=== PATIENT | female | born 1995 | race American Indian/Alaskan Native ===

== ENCOUNTER 2021-05-01 17:53 | Emergency (ER) | payer MEDICAID ==
[2021-05-01] MEDS ORDERED: ONDANSETRON 4 MG ODT TAB PO ONE (19:47)
[2021-05-01] MEDS ORDERED: DICYCLOMINE 20 MG TAB PO ONE (19:47)
[2021-05-01] MEDS ORDERED: FAMOTIDINE 20 MG TAB PO ONE (19:47)
[2021-05-01 20:09] LABS: Basophils % (Auto) 0.5 % (0.0-1.8); Eosinophils # (Auto) 0.1 K/mm3 (0.0-0.4); Eosinophils % (Auto) 1.2 % (0.0-4.3); Hematocrit 40.7 % (30.3-42.9); Hemoglobin 13.8 gm/dl (10.1-14.3); Lymphocytes % (Auto) 37.5 % (13.4-35.0); Mean Corpuscular HGB Conc 34 % (30-34); Mean Corpuscular Volume 89 fl (79-97); Monocytes # (Auto) 0.4 K/mm3 (0.0-0.8); Monocytes % (Auto) 7.3 % (0.0-7.3); Platelet Count 239 K/mm3 (140-440); Red Blood Count 4.59 M/mm3 (3.65-5.03); Red Cell Distribution Width 14.3 % (13.2-15.2)
[2021-05-01 20:23] LABS: Alanine Aminotransferase 14 units/L (7-56); Albumin 4.2 g/dL (3.9-5); Blood Urea Nitrogen 7 mg/dL (7-17); Calcium 9.1 mg/dL (8.4-10.2); Hemolysis Index 36
[2021-05-01 20:37] LABS: BUN/Creatinine Ratio 10
[2021-05-01 23:09] LABS: Bilirubin,Urine NEG (Negative); Blood,Urine NEG (Negative); Color,Urine Yellow (Yellow); Mucus,Urine FEW /HPF; Protein,Urine <15 mg/dL mg/dL (Negative); Urobilinogen,Urine < 2.0 mg/dL (<2.0)
--- NOTE | 2021-05-01 23:19 | Emergency Department Report ---
ED Abdominal Pain HPI - General Chief Complaint: Abdominal Pain Stated Complaint: NOT FEELING WELL Source: patient Mode of arrival: Ambulatory Limitations: No Limitations - History of Present Illness Initial Comments: Patient is a A0 25-year-old -[place] female with no past medical history except GERD and for which she does not take any medications presents to the ED with complaint of acute onset persistent intermittent epigastric pain with nausea and vomiting for the last 1 week, worse in the last 2 days. Patient states that she has not been able to eat anything because any smell of food or any consumption of food makes the epigastric pain worse. Patient states that she has been taking [id number] pain medication with no relief. Patient also states that her LMP was April 05, 2021 and that she has had 2+ urine tests at home and wanted to confirm the same during this visit. Patient denies fever, chills, diarrhea, dysuria, urinary frequency and urgency, vaginal bleeding, vaginal discharge, cough, chest pain, shortness of breath, sor e throat, headache, back pain, traumatic injury or hematemesis. MD Complaint: abdominal pain (Epigastric pain), other (Nausea and vomiting) -: Sudden, week(s) (2) Location: epigastric Radiation: none Migration to: no migration Severity: moderate Severity scale (0 -10): 6 Quality: cramping, aching Consistency: intermittent Improves With: nothing Worsens With: eating Associated Symptoms: denies other symptoms, nausea, vomiting, anorexia. denies: diarrhea, fever, chills, constipation, dysuria, hematemesis, hematochezia, melena, hematuria, syncope, other - Related Data LMP Date: 04/05/21 Previous Rx's Medication Instructions Recorded Last Taken Type Dicyclomine [Bentyl] 20 mg PO Q6H PRN #30 tablet 05/01/21 Unknown Rx Famotidine [Pepcid] 20 mg PO BID #60 tablet 05/01/21 Unknown Rx Ondansetron [Zofran Odt] 4 mg PO Q6HR PRN #20 tab.rapdis 05/01/21 Unknown Rx Allergies Allergy/AdvReac Type Severity Reaction Status Date / Time shellfish derived Allergy Unknown Verified 05/01/21 19:57 berries Allergy Unknown Uncoded 05/01/21 18:07 ED Review of Systems ROS: Stated complaint: NOT FEELING WELL Other details as noted in HPI Constitutional: denies: chills, fever Eyes: denies: eye pain, eye discharge, vision change ENT: denies: ear pain, throat pain Respiratory: denies: cough, shortness of breath, wheezing Cardiovascular: denies: chest pain, palpitations Endocrine: no symptoms reported Gastrointestinal: abdominal pain (Epigastric), nausea, vomiting. denies: diarrhea Genitourinary: denies: urgency, dysuria, discharge Musculoskeletal: denies: back pain, joint swelling, arthralgia Skin: denies: rash, lesions Neurological: denies: headache, weakness, paresthesias Psychiatric: denies: anxiety, depression Hematological/Lymphatic: denies: easy bleeding, easy bruising ED Past Medical Hx - Medications Home Medications: Home Medications Medication Instructions Recorded Confirmed Last Taken Type Dicyclomine [Bentyl] 20 mg PO Q6H PRN #30 tablet 05/01/21 Unknown Rx Famotidine [Pepcid] 20 mg PO BID #60 tablet 05/01/21 Unknown Rx Ondansetron [Zofran Odt] 4 mg PO Q6HR PRN #20 tab.rapdis 05/01/21 Unknown Rx ED Physical Exam - General Limitations: No Limitations General appearance: alert, in no apparent distress - Head Head exam: Present: atraumatic, normocephalic, normal inspection - Eye Eye exam: Present: normal appearance, PERRL, EOMI Pupils: Present: normal accommodation - ENT ENT exam: Present: normal exam, normal orophraynx, mucous membranes moist, TM's normal bilaterally, normal external ear exam - Neck Neck exam: Present: normal inspection, full ROM - Respiratory Respiratory exam: Present: normal lung sounds bilaterally. Absent: respiratory distress, wheezes, rales, rhonchi, chest wall tenderness, accessory muscle use, decreased breath sounds, prolonged expiratory - Cardiovascular Cardiovascular Exam: Present: regular rate, normal rhythm, normal heart sounds. Absent: systolic murmur, diastolic murmur, rubs, gallop - GI/Abdominal GI/Abdominal exam: Present: soft, tenderness (Palpable mild epigastric tende rness), normal bowel sounds. Absent: guarding, rebound, hyperactive bowel sounds, hypoactive bowel sounds, organomegaly, mass, pulsatile mass - Extremities Exam Extremities exam: Present: normal inspection, full ROM, normal capillary refill - Back Exam Back exam: Present: normal inspection, full ROM. Absent: tenderness, CVA tenderness (R), CVA tenderness (L), muscle spasm, paraspinal tenderness, vertebral tenderness - Neurological Exam Neurological exam: Present: alert, oriented X3, CN II-XII intact, normal gait, reflexes normal - Psychiatric Psychiatric exam: Present: normal affect, normal mood - Skin Skin exam: Present: warm, dry, intact, normal color. Absent: rash ED Course Vital Signs 05/01/21 18:03 Temperature 98.8 F Pulse Rate 74 Respiratory 16 Rate Blood Pressure 138/83 [Left] O2 Sat by Pulse 98 Oximetry ED Medical Decision Making - Lab Data Result diagrams: 05/01/21 19:50 05/01/21 19:50 - Medical Decision Making This is a A0 25-year-old -[place] female with no past medical history except GERD and for which she does not take any medications presents to the ED with complaint of acute onset persistent intermittent epigastric pain with nausea and vomiting for the last 1 week, worse in the last 2 days. Patient states that she has not been able to eat anything because any smell of food or any consumption of food makes the epigastric pain worse. Patient states that she has been taking [id number] pain medication with no relief. Patient also states that her LMP was April 05, 2021 and that she has had 2+ urine tests at home and wanted to confirm the same during this visit. In the ED, patient is alert and oriented x3 and is not in any distress. Patient is hemodynamically stable. Patient was treated for pain in the ED and also given antiemetics and antacids in the ED. On reevaluation, patient's pain resolved medications. Patient symptoms are likely due to GERD complications. Patient will discharge home on antacids, antiemetics and pain medications and advised to follow-up with her [facility] physician or primary care physician in 5 to 7 days for reevaluation. Patient was advised return to the ED immediately if symptoms get worse. - Differential Diagnosis ; GERD; gastritis; viral syndrome; UTI Critical care attestation.: If time is entered above; I have spent that time in minutes in the direct care of this critically ill patient, excluding procedure time. ED Disposition Clinical Impression: Acute epigastric pain GERD (gastroesophageal reflux disease) Qualifiers: Esophagitis presence: esophagitis presence not specified Qualified Code(s): K21.9 - Gastro-esophageal reflux disease without esophagitis Disposition: HOME / SELF CARE / HOMELESS Is pt being admited?: No Does the pt Need Aspirin: No Condition: Stable Instructions: Abdominal Pain (ED), Heartburn, [id number], Abdominal Pain, Adult, [id number], Gastroesophageal Reflux Disease, Adult, [id number] Additional Instructions: All lab test results were reviewed and are all nonactionable. Your symptoms are likely due to GERD complications. Therefore take medications as advised, drink plenty of fluids and follow-up with your [facility] physician or primary care physician in 5 to 7 days for reevaluation. Return to the ED immediately if symptoms get worse. Prescriptions: Dicyclomine [Bentyl] 20 mg PO Q6H PRN #30 tablet PRN Reason: Abdominal pain Famotidine [Pepcid] 20 mg PO BID #60 tablet Ondansetron [Zofran Odt] 4 mg PO Q6HR PRN #20 tab.rapdis PRN Reason: Nausea Referrals: [facility] [Provider Group] - 7-10 days Time of Disposition: 23:17 Print Language: MOROCCAN
[2021-05-02 00:03] VITALS: BP 132/85
== END 2021-05-02 00:03 | disposition home or self-care (01) ==
LOC: ED 17:53
DX: K21.9 Gastro-esophageal reflux disease without esophagitis (principal); R10.13 Epigastric pain; Z91.013 Allergy to seafood; Z91.018 Allergy to other foods
CPT/HCPCS: 36415; 80053; 81001; 83690; 84703; 85025; 99283; Q0162

== ENCOUNTER 2021-10-04 01:56 | Emergency (ER) | payer MEDICAID ==
[2021-10-04 02:18] VITALS: BP 141/57
[2021-10-04 03:01] LABS: Basophils % (Auto) 0.7 % (0.0-1.8); Eosinophils # (Auto) 0.1 K/mm3 (0.0-0.4); Eosinophils % (Auto) 1.8 % (0.0-4.3); Hematocrit 37.3 % (30.3-42.9); Hemoglobin 12.2 gm/dl (10.1-14.3); Lymphocytes # (Auto) 1.6 K/mm3 (1.2-5.4); Lymphocytes % (Auto) 34.7 % (13.4-35.0); Mean Corpuscular HGB Conc 33 % (30-34); Mean Corpuscular Volume 88 fl (79-97); Monocytes # (Auto) 0.4 K/mm3 (0.0-0.8); Platelet Count 260 K/mm3 (140-440); Red Blood Count 4.23 M/mm3 (3.65-5.03); Red Cell Distribution Width 14.1 % (13.2-15.2)
[2021-10-04] MEDS ORDERED: ACETAMINOPHEN 500 MG TAB PO ONE (03:02)
[2021-10-04 03:37] LABS: Alanine Aminotransferase 9 units/L (7-56); Albumin 4.1 g/dL (3.9-5); Blood Urea Nitrogen 14 mg/dL (7-17); Calcium 8.6 mg/dL (8.4-10.2); Hemolysis Index 6
[2021-10-04 03:50] LABS: BUN/Creatinine Ratio 20
[2021-10-04 04:14] LABS: Hyaline Casts,Urine 2 /LPF; Mucus,Urine 2+ /HPF
[2021-10-04 04:27] LABS: Bilirubin,Urine Negative (Negative); Blood,Urine Moderate (Negative); Color,Urine Dark Yellow (Yellow)
[2021-10-04 04:28] LABS: Urobilinogen,Urine < 2.0 mg/dL (<2.0)
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
== END 2021-10-04 05:38 | disposition home or self-care (01) ==
LOC: ED 01:56
DX: N94.6 Dysmenorrhea, unspecified (principal); Z91.02 Food additives allergy status; Z91.013 Allergy to seafood
CPT/HCPCS: 36415; 80053; 81001; 84702; 85025; 86900; 86901; 87086; 99283; 99284